=== PATIENT | male | born 1990 | race Hispanic/Latino ===

== ENCOUNTER 2016-11-24 08:59 | Emergency (ER) | payer MEDICAID, OTHER ==
[2016-11-24 09:24] VITALS: BP 132/73; PULSE 88; RESP 16; TEMP 98; O2SAT 98
[2016-11-24 09:25] VITALS: BMI 25.8
--- NOTE | 2016-11-24 09:36 | ED PDOC ---
HPI: Back Time Seen by Provider: 11/24/16 09:26 Chief Complaint (Provider): Back pain History Per: Patient History/Exam Limitations: no limitations Onset/Duration Of Symptoms: Days (Yesterday) Additional Complaint(s): Pt. with left lateral upper back pain. Ongoing since yesterday. No numbness, tingles, weakness, headaches, dizziness. No injury. Sharp pain present on any movement. No chest pain, dyspnea, abd pain. No leg pain, long distance travel , or hormone tx. Past Medical History Reviewed: Nursing Documentation, Vital Signs Vital Signs: Last Vital Signs Temp 98 F 11/24/16 09:24 Pulse 88 11/24/16 09:24 Resp 16 11/24/16 09:24 BP 132/73 11/24/16 09:24 Pulse Ox 98 11/24/16 09:24 - Medical History PMH: No Chronic Diseases - Surgical History Surgical History: No Surg Hx - Family History Family History: States: Hypertension (mother) Denies: [place], CAD - Living Arrangements Living Arrangements: With Family - Social History Current smoker - smoking cessation education provided: No Alcohol: None Drugs: Denies - Immunization History Hx Tetanus Toxoid Vaccination: No Hx Influenza Vaccination: No Hx Pneumococcal Vaccination: No - Home Medications Home Medications: Ambulatory Orders Medication Instructions Recorded Naproxen [Naprosyn Tab] 500 mg PO BID PRN #20 tab 01/19/15 Erythromycin 0.5% [Erythromycin] 1 applic OS Q6 #0 tube 07/07/15 Metoclopramide HCl [Reglan] 10 mg PO Q8 PRN #30 tablet 12/19/15 Ibuprofen [Motrin] 600 mg PO TID 7 Days 11/24/16 - Allergies Allergies/Adverse Reactions: Allergies Allergy/AdvReac Type Severity Reaction Status Date / Time No Known Allergies Allergy Verified 11/24/16 09:44 Review of Systems Constitutional: Negative for: Weakness Cardiovascular: Negative for: Chest Pain, Palpitations, Orthopnea, Edema, Light Headedness Respiratory: Negative for: Cough, Shortness of Breath, Sputum Gastrointestinal: Negative for: Nausea, Vomiting, Abdominal Pain Musculoskeletal: Positive for: Back Pain. Negative for: Neck Pain, Shoulder Pain, Arm Pain, Hand Pain, Leg Pain Skin: Negative for: Rash Neurological: Negative for: Weakness Physical Exam - Reviewed Nursing Documentation Reviewed: Yes Vital Signs Reviewed: Yes - Physical Exam Appears: Positive for: Non-toxic Head Exam: Positive for: ATRAUMATIC, NORMAL INSPECTION, NORMOCEPHALIC Skin: Positive for: Normal Color, Warm, DRY Eye Exam: Positive for: EOMI, Normal appearance, PERRL ENT: Positive for: Normal ENT Inspection Neck: Positive for: Normal, Painless ROM Cardiovascular/Chest: Positive for: Regular Rate, Rhythm, Chest Non Tender. Negative for: Edema Respiratory: Positive for: CNT, Normal Breath Sounds Gastrointestinal/Abdominal: Positive for: Normal Exam, Bowel Sounds, Soft. Negative for: Tenderness Back: Positive for: Other (mild tender lateral rib upper left). Negative for: L CVA Tenderness, R CVA Tenderness Extremity: Positive for: Normal ROM. Negative for: Tenderness, Pedal Edema Neurologic/Psych: Positive for: Alert, Oriented - ECG ECG: Positive for: Interpreted By Me, Viewed By Me ECG Rhythm: Positive for: Normal QRS, Normal ST Segment, Sinus Rhythm Interpretation Of Abn EKG: same as old O2 Sat by Pulse Oximetry: 98 - Radiology X-Ray: Read By Radiologist X-Ray Interpretation: No Acute Disease - Progress ED Course And Treament: 1118: Stable. AAOx3. Pain free. Tolerated PO. FU with pcp. Disposition - Clinical Impression Clinical Impression: Back pain - Patient ED Disposition Is Patient to be Admitted: No Counseled Patient/Family Regarding: Studies Performed, Diagnosis, Need For Followup, Rx Given - Disposition Referrals: [facility] [Outside] - 11/25/16 Disposition: Routine/Home Disposition Time: 11:19 Condition: STABLE Additional Instructions: Return if not better in 3 days. Prescriptions: Ibuprofen [Motrin] 600 mg PO TID 7 Days Instructions: Back Pain (ED) Forms: [facility] ED School/Work Excuse
--- NOTE | 2016-11-24 10:33 | RAD ---
PROCEDURE: Radiographs of the Chest and Left Ribs. HISTORY: pain COMPARISON: 12/19/2015. TECHNIQUE: Frontal radiograph of the chest and multiple oblique radiographs of the left ribs were obtained. FINDINGS: LEFT RIBS: No fracture or focal lesion visualized. LUNGS: Clear. PLEURA: No pneumothorax or pleural fluid. CARDIOVASCULAR: Normal sized heart. No pulmonary vascular congestion. OTHER FINDINGS: None. IMPRESSION: Unremarkable radiographs of the chest and left ribs. No left rib fracture.
--- NOTE | 2016-11-24 12:18 | CARD ---
APPROVED REPORT EKG Measurement Heart [id number] <Conclusion> Normal sinus rhythm Normal ECG
== END 2016-11-24 12:20 | disposition home or self-care (01) ==
LOC: H.ER 08:59
DX: M54.9 Dorsalgia, unspecified (principal)

== ENCOUNTER 2017-09-13 09:07 | Emergency (ER) | payer OTHER ==
[2017-09-13 09:07] VITALS: BMI 25.8
[2017-09-13] MEDS ORDERED: Sodium Chloride 0.9% 1,000 ML IV STA (10:22)
[2017-09-13] MEDS ORDERED: Morphine 4 MG/ML VIAL IV STA (10:26)
--- NOTE | 2017-09-13 10:50 | ED PDOC ---
HPI: Headache Time Seen by Provider: 09/13/17 09:49 Chief Complaint (Nursing): Headache Chief Complaint (Provider): headache History Per: Patient History/Exam Limitations: no limitations Onset/Duration Of Symptoms: Days (x1) Current Symptoms Are (Timing): Still Present Quality: "Pain" Associated Symptoms: Photophobia, Nausea (mild) Additional Complaint(s): Robert Huertas is a 27 year old male, with no significant past medical history, who presents to the emergency department complaining of headache associated with photophobia, congestion and mild nausea onset since last night. Patient reports pain on his eyes, front and back of the head. Patient has had similar pain in the past, he suffers from migraines but states he hasn't officially been diagnosed. He took Tylenol last night with no relief. He denies any fever, chills or other medical complaints. PMD: None provided. Past Medical History Reviewed: Historical Data, Nursing Documentation, Vital Signs Vital Signs: Last Vital Signs Temp 97.7 F 09/13/17 09:12 Pulse 93 H 09/13/17 09:12 Resp 19 09/13/17 09:12 BP 123/87 09/13/17 09:12 Pulse Ox 96 09/13/17 09:12 - Medical History PMH: Migraine - Surgical History Surgical History: No Surg Hx - Family History Family History: States: Hypertension (mother) Denies: [place], CAD - Social History Current smoker - smoking cessation education provided: No Alcohol: None Drugs: Denies - Immunization History Hx Tetanus Toxoid Vaccination: No Hx Influenza Vaccination: No Hx Pneumococcal Vaccination: No - Home Medications Home Medications: Ambulatory Orders Medication Instructions Recorded Naproxen [Naprosyn Tab] 500 mg PO BID PRN #20 tab 01/19/15 Erythromycin 0.5% [Erythromycin] 1 applic OS Q6 #0 tube 07/07/15 Metoclopramide HCl [Reglan] 10 mg PO Q8 PRN #30 tablet 12/19/15 Ibuprofen [Motrin] 600 mg PO TID 7 Days tab 11/24/16 Amoxicillin/Clavulanate [Augmentin 1 tab PO BID #19 tab 09/13/17 875 MG-125 MG] Naproxen [Naprosyn] 500 mg PO BID PRN #15 tablet 09/13/17 - Allergies Allergies/Adverse Reactions: Allergies Allergy/AdvReac Type Severity Reaction Status Date / Time No Known Allergies Allergy Verified 11/24/16 09:44 Review of Systems ROS Statement: Except As Marked, All Systems Reviewed And Found Negative Constitutional: Negative for: Fever, Chills ENT: Positive for: Nose Congestion Gastrointestinal: Positive for: Nausea (mild) Neurological: Positive for: Headache Physical Exam - Reviewed Nursing Documentation Reviewed: Yes Vital Signs Reviewed: Yes - Physical Exam Appears: Positive for: Non-toxic, In Acute Distress (mild painful) Head Exam: Positive for: ATRAUMATIC, NORMOCEPHALIC Skin: Positive for: Normal Color, Warm, Dry Eye Exam: Positive for: Normal appearance, EOMI, PERRL ENT: Positive for: Sinus Pain/Drainage (frontal, maxillary, ethmoid and sphenoid tenderness) Neck: Positive for: Painless ROM, Supple Cardiovascular/Chest: Positive for: Regular Rate, Rhythm. Negative for: Murmur Respiratory: Positive for: Normal Breath Sounds. Negative for: Respiratory Distress Extremity: Positive for: Normal ROM (upper and lower extremity). Negative for: Deformity, Swelling Neurologic/Psych: Positive for: Alert, Oriented (x3), Gait (steady). Negative for: Motor/Sensory Deficits - ECG O2 Sat by Pulse Oximetry: 96 (RA) Pulse Ox Interpretation: Normal Medical Decision Making Medical Decision Making: Initial Impression: sinusitis Initial Plan: --Head w/o contrast [CT] --Morphine 2 mg IV --Sodium Chloride 1,000 ml IV 1,000 mls/hr --Zofran ODT 4 mg PO --Reevaluation 10:[address] FINDINGS: HEMORRHAGE: No intracranial hemorrhage. BRAIN: Normal liu-white matter differentiation and density are appreciated throughout the cerebrum and cerebellum with the brainstem appearing unremarkable as well. There is no mass effect. There is no suspicious extra-axial fluid collection and the midline brain anatomy appears diffusely unremarkable. VENTRICLES: Unremarkable. No hydrocephalus. CALVARIUM: Unremarkable. PARANASAL SINUSES: Moderate left maxillary sinusitis is appreciated incidentally. MASTOID AIR CELLS: Unremarkable as visualized. No inflammatory changes. OTHER FINDINGS: None. IMPRESSION: Unremarkable unenhanced head CT as discussed above. Incidental note is made of moderate left maxillary sinusitis incompletely captured in this exam. Scribe Attestation: Documented by Danny Ramesh, acting as a scribe for Joslyn Morillo MD Provider Scribe Attestation: All medical record entries made by the Scribe were at my direction and personally dictated by me. I have reviewed the chart and agree that the record accurately reflects my personal performance of the history, physical exam, medical decision making, and the department course for this patient. I have also personally directed, reviewed, and agree with the discharge instructions and disposition. Disposition - Clinical Impression Clinical Impression: Sinus headache - Disposition Disposition: Routine/Home Disposition Time: 14:16 Condition: IMPROVED Additional Instructions: FOLLOW-UP WITH PMD WITHIN 2 DAYS FOR REEVALUATION. Prescriptions: Amoxicillin/Clavulanate [Augmentin 875 MG-125 MG] 1 tab PO BID #19 tab Naproxen [Naprosyn] 500 mg PO BID PRN #15 tablet PRN Reason: Pain, Moderate (4-7) Instructions: Sinus Headache (DC) Forms: [employer] (E[place]ian)
--- NOTE | 2017-09-13 10:56 | CT ---
PROCEDURE: CT HEAD WITHOUT CONTRAST. HISTORY: Sinus pain, TEJEDA COMPARISON: None available. TECHNIQUE: Axial computed tomography images were obtained through the head/brain without intravenous contrast. Radiation dose: Total exam DLP = 810.21 mGy-cm. This CT exam was performed using one or more of the following dose reduction techniques: Automated exposure control, adjustment of the mA and/or kV according to patient size, and/or use of iterative reconstruction technique. FINDINGS: HEMORRHAGE: No intracranial hemorrhage. BRAIN: Normal liu-white matter differentiation and density are appreciated throughout the cerebrum and cerebellum with the brainstem appearing unremarkable as well. There is no mass effect. There is no suspicious extra-axial fluid collection and the midline brain anatomy appears diffusely unremarkable. VENTRICLES: Unremarkable. No hydrocephalus. CALVARIUM: Unremarkable. PARANASAL SINUSES: Moderate left maxillary sinusitis is appreciated incidentally. MASTOID AIR CELLS: Unremarkable as visualized. No inflammatory changes. OTHER FINDINGS: None. IMPRESSION: Unremarkable unenhanced head CT as discussed above. Incidental note is made of moderate left maxillary sinusitis incompletely captured in this exam.
[2017-09-13] MEDS ORDERED: Morphine 4 MG/ML VIAL ONE (11:11)
[2017-09-13] MEDS ORDERED: Amoxicillin-Clav 875-125 mg Tab PO STA (11:33)
[2017-09-13] MEDS ORDERED: Amoxicillin-Clav 875-125 mg Tab PO ONE (12:33)
[2017-09-13 14:24] VITALS: BP 128/82; PULSE 90; RESP 16; TEMP 98
[2017-09-18 10:32] VITALS: O2SAT 96
== END 2017-09-13 14:22 | disposition home or self-care (01) ==
LOC: H.ER 09:07
DX: J32.0 Chronic maxillary sinusitis (principal)
CPT/HCPCS: 70450; 96361; 96374; 96375; 99283; J1885; J2270; J7040

== ENCOUNTER 2017-11-14 04:48 | Emergency (ER) | payer OTHER ==
[2017-11-14 05:18] VITALS: BMI 28.2
[2017-11-14] MEDS ORDERED: DiphenhydrAMINE 50 mg/ml Inj IVP STA (05:18)
[2017-11-14] MEDS ORDERED: Famotidine 20mg/50ml 20 MG in Premixed IV 50 EA IVPB STA (05:19)
[2017-11-14 05:21] VITALS: RESP 16
--- NOTE | 2017-11-14 05:27 | ED PDOC ---
HPI: Allergic Reaction Time Seen by Provider: 11/14/17 05:25 Chief Complaint (Nursing): Allergic Reaction Chief Complaint (Provider): urticaria History Per: Patient (27 y/o male here with generalized rash that occurred today while sleeping associated with itching. Patient states he ate lobster for first time at 3pm today. No difficulty breathing. No difficulty swallowing.) Past Medical History Reviewed: Historical Data, Nursing Documentation, Vital Signs Vital Signs: Last Vital Signs Temp 98.0 F 11/14/17 05:14 Pulse 86 11/14/17 05:14 Resp 16 11/14/17 05:14 BP 134/94 H 11/14/17 05:14 Pulse Ox 99 11/14/17 05:14 - Medical History PMH: Migraine - Family History Family History: States: No Known Family Hx, Hypertension (mother) Denies: [place], CAD - Immunization History Hx Tetanus Toxoid Vaccination: No Hx Influenza Vaccination: No Hx Pneumococcal Vaccination: No - Home Medications Home Medications: Ambulatory Orders Medication Instructions Recorded Naproxen [Naprosyn Tab] 500 mg PO BID PRN #20 tab 01/19/15 Erythromycin 0.5% [Erythromycin] 1 applic OS Q6 #0 tube 07/07/15 Metoclopramide HCl [Reglan] 10 mg PO Q8 PRN #30 tablet 12/19/15 Ibuprofen [Motrin] 600 mg PO TID 7 Days tab 11/24/16 Amoxicillin/Clavulanate [Augmentin 1 tab PO BID #19 tab 09/13/17 875 MG-125 MG] Naproxen [Naprosyn] 500 mg PO BID PRN #15 tablet 09/13/17 DiphenhydrAMINE [Benadryl] 50 mg PO Q6 PRN #24 cap 11/14/17 Epinephrine HCl [Epipen 0.3 mg MR ONCE PRN #0.3 ml 11/14/17 Auto-Injector] predniSONE [predniSONE Tab] 3 tab PO DAILY #12 tab 11/14/17 - Allergies Allergies/Adverse Reactions: Allergies Allergy/AdvReac Type Severity Reaction Status Date / Time No Known Allergies Allergy Verified 11/24/16 09:44 Review of Systems ROS Statement: Except As Marked, All Systems Reviewed And Found Negative Skin: Positive for: Rash Physical Exam - Reviewed Nursing Documentation Reviewed: Yes Vital Signs Reviewed: Yes - Physical Exam Appears: Positive for: Well, Non-toxic, No Acute Distress Head Exam: Positive for: ATRAUMATIC, NORMAL INSPECTION, NORMOCEPHALIC Skin: Positive for: Normal Color, Warm, Rash (urticaria generalized mostly thorax/back/neck) Eye Exam: Positive for: EOMI, Normal appearance, PERRL ENT: Positive for: Normal ENT Inspection Neck: Positive for: Normal, Painless ROM Cardiovascular/Chest: Positive for: Regular Rate, Rhythm Respiratory: Positive for: CNT, Normal Breath Sounds Gastrointestinal/Abdominal: Positive for: Normal Exam, Soft Back: Positive for: Normal Inspection Extremity: Positive for: Normal ROM Neurologic/Psych: Positive for: Alert, Oriented - ECG O2 Sat by Pulse Oximetry: 99 - Progress ED Course And Treament: pepcid 20 mg iv x 1 dose benadryl 50 mg iv x 1 dose solumedrol 125mg iv x 1 dose Disposition - Clinical Impression Clinical Impression: Allergic reaction - Patient ED Disposition Is Patient to be Admitted: No - Disposition Disposition: Routine/Home Disposition Time: 06:00 Condition: FAIR Additional Instructions: AVOID SEAFOOD UNTIL SEEN BY PRIMARY CARE PMD Prescriptions: DiphenhydrAMINE [Benadryl] 50 mg PO Q6 PRN #24 cap PRN Reason: Itching / Pruritus Epinephrine HCl [Epipen Auto-Injector] 0.3 mg MR ONCE PRN #0.3 ml PRN Reason: Anaphylaxis predniSONE [predniSONE Tab] 3 tab PO DAILY #12 tab Instructions: Hives, Food Allergy Forms: [facility] ED School/Work Excuse
[2017-11-14] MEDS ORDERED: DiphenhydrAMINE 50 mg/ml Inj ONE (05:50)
[2017-11-14 08:52] VITALS: BP 124/80; PULSE 71; TEMP 98.5; O2SAT 100
== END 2017-11-14 07:20 | disposition home or self-care (01) ==
LOC: H.ER 04:48
DX: T78.40XA Allergy, unspecified, initial encounter (principal); L50.0 Allergic urticaria
CPT/HCPCS: 96374; 96375; 99284; J1200; J2930

== ENCOUNTER 2018-02-16 08:53 | Emergency (ER) | payer OTHER ==
[2018-02-16 09:00] VITALS: BMI 26.6
[2018-02-16 09:01] VITALS: PULSE 78; O2SAT 98
[2018-02-16] MEDS ORDERED: Sodium Chloride 0.9% 1,000 ML IV STA (10:29)
[2018-02-16 10:45] LABS: BASO # 0.1 K/uL (0.0-0.2); BASO % 0.9 % (0.0-2.0); EOS # 0.1 K/uL (0.0-0.7); EOS % 1.4 % (0.0-4.0); HEMOGLOBIN 14.5 g/dL (12.0-18.0); LYMPH # 1.7 K/uL (1.0-4.3); LYMPH % 21.2 % (20.0-40.0); MEAN CELL VOLUME 88.5 fl (80.0-94.0); MEAN CORPUSCULAR HEMOGLOBIN 30.9 pg (27.0-31.0); MEAN CORPUSCULAR HGB CONC 34.9 g/dL (33.0-37.0); MEAN PLATELET VOLUME 7.5 fl (7.2-11.7); MONO # 0.9 K/uL (0.0-0.8); MONO % 11.4 % (0.0-10.0); NEUT # 5.1 K/uL (1.8-7.0); NEUT % 65.1 % (50.0-75.0); NRBC % 0.1 % (0.0-0.0); RBC 4.68 Mil/uL (4.40-5.90); RED CELL DISTRIBUTION WIDTH 13.4 % (11.5-14.5); WHITE BLOOD COUNT 7.9 K/uL (4.8-10.8)
[2018-02-16 10:54] LABS: BLOOD UREA NITROGEN 16 mg/dl (9-20); CALCIUM 9.3 mg/dL (8.4-10.2); GFR NON-AFRICAN AMERICAN > 60
--- NOTE | 2018-02-16 11:23 | CT ---
Date of service: 02/16/2018 PROCEDURE: CT HEAD WITHOUT CONTRAST. HISTORY: headache COMPARISON: 09/13/2017 TECHNIQUE: Axial computed tomography images were obtained through the head/brain without intravenous contrast. Radiation dose: Total exam DLP = 832.23 mGy-cm. This CT exam was performed using one or more of the following dose reduction techniques: Automated exposure control, adjustment of the mA and/or kV according to patient size, and/or use of iterative reconstruction technique. FINDINGS: HEMORRHAGE: No intracranial hemorrhage. BRAIN: No mass effect or edema. No atrophy or chronic microvascular ischemic changes. VENTRICLES: Unremarkable. No hydrocephalus. CALVARIUM: Unremarkable. PARANASAL SINUSES: Unremarkable as visualized. No significant inflammatory changes. MASTOID AIR CELLS: Unremarkable as visualized. No inflammatory changes. OTHER FINDINGS: None. IMPRESSION: Normal CT of the Head. No intracranial mass, hemorrhage or evidence of acute infarct.
--- NOTE | 2018-02-16 13:08 | ED PDOC ---
HPI: Headache Time Seen by Provider: 02/16/18 09:58 Chief Complaint (Nursing): Headache Chief Complaint (Provider): Headache History Per: Patient History/Exam Limitations: no limitations Onset/Duration Of Symptoms: Days (x 2) Current Symptoms Are (Timing): Still Present Quality: "Pain" Additional Complaint(s): 27 year old male with a history of headaches presents to the ED with a right sided, constant headache radiating to his right shoulder for 2 days. Patient has had similar symptoms frequently in the past, but never had it evaluated by a specialist. Denies blurry vision, vision changes, numbness, weakness, nausea, vomiting and other complaints. PMD: Dr. Dimitry Zhou Past Medical History Reviewed: Historical Data, Nursing Documentation, Vital Signs Vital Signs: Last Vital Signs Temp 98.4 F 02/16/18 09:00 Pulse 78 02/16/18 09:00 Resp 17 02/16/18 09:00 BP 127/86 02/16/18 09:00 Pulse Ox 98 02/16/18 09:00 - Medical History PMH: Migraine - Surgical History Surgical History: No Surg Hx - Family History Family History: States: Hypertension (mother) Denies: [place], CAD - Immunization History Hx Tetanus Toxoid Vaccination: No Hx Influenza Vaccination: No Hx Pneumococcal Vaccination: No - Home Medications Home Medications: Ambulatory Orders Medication Instructions Recorded Naproxen [Naprosyn Tab] 500 mg PO BID PRN #20 tab 01/19/15 Erythromycin 0.5% [Erythromycin] 1 applic OS Q6 #0 tube 07/07/15 Metoclopramide HCl [Reglan] 10 mg PO Q8 PRN #30 tablet 12/19/15 Ibuprofen [Motrin] 600 mg PO TID 7 Days tab 11/24/16 Amoxicillin/Clavulanate [Augmentin 1 tab PO BID #19 tab 09/13/17 875 MG-125 MG] DiphenhydrAMINE [Benadryl] 50 mg PO Q6 PRN #24 cap 11/14/17 Epinephrine HCl [Epipen 0.3 mg MR ONCE PRN #0.3 ml 11/14/17 Auto-Injector] predniSONE [predniSONE Tab] 3 tab PO DAILY #12 tab 11/14/17 Naproxen [Naprosyn] 500 mg PO BID PRN #15 tablet 02/16/18 - Allergies Allergies/Adverse Reactions: Allergies Allergy/AdvReac Type Severity Reaction Status Date / Time No Known Allergies Allergy Verified 02/16/18 09:16 Review of Systems ROS Statement: Except As Marked, All Systems Reviewed And Found Negative Musculoskeletal: Positive for: Shoulder Pain (right; radiating from headache) Neurological: Positive for: Headache Physical Exam - Reviewed Nursing Documentation Reviewed: Yes Vital Signs Reviewed: Yes - Physical Exam Appears: Positive for: Non-toxic, No Acute Distress Head Exam: Positive for: ATRAUMATIC, NORMAL INSPECTION, NORMOCEPHALIC Skin: Positive for: Normal Color, Warm, Dry Eye Exam: Positive for: EOMI, Normal appearance, PERRL Neck: Positive for: Normal, Painless ROM, Supple Cardiovascular/Chest: Positive for: Regular Rate, Rhythm. Negative for: Murmur Respiratory: Positive for: Normal Breath Sounds. Negative for: Respiratory Distress Gastrointestinal/Abdominal: Positive for: Normal Exam, Soft. Negative for: Tenderness Extremity: Positive for: Normal ROM. Negative for: Deformity Neurologic/Psych: Positive for: Alert, Oriented (x 3). Negative for: Motor/Sensory Deficits - Laboratory Results Result Diagrams: 02/16/18 10:35 02/16/18 10:35 - ECG O2 Sat by Pulse Oximetry: 98 (RA) Pulse Ox Interpretation: Normal Medical Decision Making Medical Decision Makin:28 Impression: headache and shoulder pain Differential diagnoses include but are not limited to: recurrent headaches, migraines, tension headache, cluster headache Initial Plan: --CT Head --BMP --CBC --NS IV --Reglan 10 mg IVP --Toradol 30 mg IVP 11:[address] FINDINGS: HEMORRHAGE: No intracranial hemorrhage. BRAIN: No mass effect or edema. No atrophy or chronic microvascular ischemic changes. VENTRICLES: Unremarkable. No hydrocephalus. CALVARIUM: Unremarkable. PARANASAL SINUSES: Unremarkable as visualized. No significant inflammatory changes. MASTOID AIR CELLS: Unremarkable as visualized. No inflammatory changes. OTHER FINDINGS: None. IMPRESSION: Normal CT of the Head. No intracranial mass, hemorrhage or evidence of acute infarct. 12:45 --Upon reevaluation, patient reports an improvement of symptoms and requires no further treatment in the ED at this time. He is stable for discharge home. Scribe Attestation: Documented by Pari Wolf, acting as a scribe for David Bowen MD Provider Scribe Attestation: All medical record entries made by the Scribe were at my direction and personally dictated by me. I have reviewed the chart and agree that the record accurately reflects my personal performance of the history, physical exam, medical decision making, and the department course for this patient. I have also personally directed, reviewed, and agree with the discharge instructions and disposition. Disposition - Clinical Impression Clinical Impression: Headache - Patient ED Disposition Is Patient to be Admitted: No - Disposition Referrals: Yadiel Ta MD [Staff Provider] - Disposition Time: 12:45 Condition: GOOD Additional Instructions: STEVE PITTS, thank you for letting us take care of you today. Your provider was David Diamond MD and you were treated for HEADACHE/SHOULDER PAIN. The emergency medical care you received today was directed at your acute symptoms. If you were prescribed any medication, please fill it and take as directed. It may take several days for your symptoms to resolve. Return to the Emergency Department if your symptoms worsen, do not improve, or if you have any other problems. Please contact your doctor or call one of the physicians/clinics you have been referred to that are listed on the Patient Visit Information form that is included in your discharge packet. Bring any paperwork you were given at discharge with you along with any medications you are taking to your follow up visit. Our treatment cannot replace ongoing medical care by a primary care provider outside of the emergency department. Thank you for allowing the [facility] team to be part of your care today. If you had an X-Ray or CT scan: A Radiologist will review the ED reading if any change in treatment is needed we will contact you. If you had a blood, urine, or wound culture: It will take several days for the results, if any change in treatment is needed we will contact you. If you had an STI test: It will take 48 hours for the results. Please call after 1 week if you have not heard back. Prescriptions: Naproxen [Naprosyn] 500 mg PO BID PRN #15 tablet PRN Reason: Pain, Moderate (4-7) Instructions: Headache, Adult (DC)
[2018-02-16 13:30] VITALS: BP 120/78; RESP 19; TEMP 97
== END 2018-02-16 13:30 | disposition home or self-care (01) ==
LOC: H.ER 08:53
DX: R51 Headache (principal)
CPT/HCPCS: 70450; 80048; 85025; 96374; 96375; 99284; J1885; J2765; J7030